=== PATIENT | female | born 1995 ===

== ENCOUNTER 2016-10-11 09:19 | Emergency (ER) | payer MEDICAID ==
[2016-10-11 09:51] VITALS: BMI 18.8
[2016-10-11 09:54] VITALS: RESP 18
[2016-10-11 10:49] LABS: URINE BACTERIA RARE (<OCC); URINE BILIRUBIN NEGATIVE (NEGATIVE); URINE BLOOD 3+ (NEGATIVE); URINE COLOR Yellow (YELLOW); URINE GLUCOSE (UA) NORMAL (Normal); URINE KETONE NEGATIVE (NEGATIVE); URINE LEUKOCYTE ESTERASE TRACE Leu/uL (Negative); URINE PROTEIN NEGATIVE (NEGATIVE); URINE UROBILINOGEN NORMAL mg/dL (0.2-1.0)
[2016-10-11 10:50] LABS: RBC URINE 3 /hpf (0-3); WBC URINE 11 /hpf (0-5)
[2016-10-11 11:02] LABS: BASO % 0.6 % (0.0-2.0); EOS # 0.1 K/uL (0.0-0.7); EOS % 1.3 % (0.0-4.0); HEMATOCRIT 33.1 % (34.0-47.0); LYMPH # 2.1 K/uL (1.0-4.3); LYMPH % 48.4 % (20.0-40.0); MEAN CELL VOLUME 88.7 fL (81.0-99.0); MEAN CORPUSCULAR HEMOGLOBIN 29.4 pg (27.0-31.0); MEAN CORPUSCULAR HGB CONC 33.1 g/dL (33.0-37.0); MEAN PLATELET VOLUME 8.3 fL (7.2-11.7); MONO # 0.4 K/uL (0.0-0.8); MONO % 9.9 % (0.0-10.0); NRBC % 0.1 % (0.0-2.0); RED CELL DISTRIBUTION WIDTH 14.5 % (11.5-14.5); WHITE BLOOD COUNT 4.3 K/uL (4.8-10.8)
[2016-10-11 11:13] LABS: CHLORIDE 103 mmol/L (98-107); POTASSIUM 4.3 mmol/L (3.6-5.2); SODIUM 140 mmol/L (132-148)
[2016-10-11 11:16] LABS: ALB/GLOB RATIO 1.1 (1.0-2.1); ALKALINE PHOSPHATASE 62 U/L (38-126); ALT/SGPT 30 U/L (9-52); AST/SGOT 29 U/L (14-36); BILIRUBIN,TOTAL 0.4 mg/dL (0.2-1.3); BLOOD UREA NITROGEN 10 mg/dL (7-17); CARBON DIOXIDE 25 mmol/L (22-30); GFR AFRICAN-AMERICAN > 60; GLUCOSE,RANDOM 87 mg/dL (65-105); TOTAL PROTEIN 7.6 g/dL (6.3-8.3)
[2016-10-11 11:17] LABS: CALCIUM 8.8 mg/dl (8.6-10.4)
--- NOTE | 2016-10-11 11:23 | C.PDOC ---
History Of Present Illness 21 year old female presents to the ED with complaints of persistent vaginal bleeding for the past month. Patient states she occasionally has clots and cramping abdominal pain and notes she took some Motrin throughout the month. She reports she has been regular until now and has a 1 year old child. Denies back pain, urinary symptoms, or any other complaints at this time. Time Seen by Provider: 10/11/16 11:05 Chief Complaint (Nursing): Female Genitourinary History Per: Patient History/Exam Limitations: no limitations Onset/Duration Of Symptoms: Days Current Symptoms Are (Timing): Still Present Severity: Mild Quality Of Discomfort: Cramping Associated Symptoms: denies: Fever, Chills, Nausea, Vomiting, Urinary Symptoms Abnormal Vaginal Bleeding: Yes Past Medical History Reviewed: Historical Data, Nursing Documentation, Vital Signs Vital Signs: Last Vital Signs Temp 98 F 10/11/16 11:32 Pulse 68 10/11/16 11:32 Resp 18 10/11/16 11:32 BP 133/72 10/11/16 11:32 Pulse Ox 100 10/11/16 12:28 - Medical History PMH: No Chronic Diseases Family History: States: Unknown Family Hx - Social History Hx Alcohol Use: No Hx Substance Use: No Review Of Systems Except As Marked, All Systems Reviewed And Found Negative. Constitutional: Negative for: Fever, Chills, Weakness Gastrointestinal: Negative for: Nausea, Vomiting Genitourinary: Positive for: Vaginal Bleeding. Negative for: Dysuria, Frequency , Pelvic Pain Musculoskeletal: Negative for: Back Pain Neurological: Negative for: Weakness, Numbness Physical Exam - Physical Exam Appears: Non-toxic, No Acute Distress Skin: Normal Color, Warm, Dry Head: Atraumatic, Normacephalic Cardiovascular: Rhythm Regular, No Murmur Respiratory: Normal Breath Sounds, No Accessory Muscle Use, No Rales, No Rhonchi , No Wheezing Gastrointestinal/Abdominal: Soft, No Tenderness, No Distention, No Guarding, No Rebound Extremity: Normal ROM Neurological/Psych: Oriented x3, Normal Speech, Normal Cognition ED Course And Treatment - Laboratory Results Result Diagrams: 10/11/16 10:53 10/11/16 10:53 O2 Sat by Pulse Oximetry: 100 (Room air) Pulse Ox Interpretation: Normal Progress Note: Blood work and Urinalysis ordered and reviewed. Rx given and patient advised to follow up with the clinic. Medical Decision Making Medical Decision Making: neg ucg, H/H ok Plan dc home hormones nsaid obstetrics gyn f/u Disposition - Disposition Referrals: [facility] [Outside] Disposition: HOSPITALIZED Disposition Time: 11:19 Condition: GOOD Prescriptions: Naproxen [Naprosyn] 1 tab PO BID PRN #25 tab PRN Reason: Pain MedroxyPROGESTERone [Provera] 1 tab PO DAILY #10 tab Metoclopramide [Reglan] 1 tab PO TID PRN #25 tab PRN Reason: Nausea/Vomiting Instructions: Dysfunctional Uterine Bleeding (ED) - Clinical Impression Clinical Impression: DUB (dysfunctional uterine bleeding) - Scribe Statement The provider has reviewed the documentation as recorded by the Scribe Katherine Bella. Provider Attestation: All medical record entries made by the Scribe were at my direction and personally dictated by me. I have reviewed the chart and agree that the record accurately reflects my personal performance of the history, physical exam, medical decision making, and the department course for this patient. I have also personally directed, reviewed, and agree with the discharge instructions and disposition.
[2016-10-11 11:33] VITALS: BP 133/72; PULSE 68; TEMP 98
[2016-10-11 12:25] VITALS: O2SAT 100
== END 2016-10-11 11:38 | disposition short-term general hospital (02) ==
LOC: C.ER 09:19
DX: N93.8 Other specified abnormal uterine and vaginal bleeding (principal)